=== PATIENT | male | born 1975 | race Caucasian/White ===

== ENCOUNTER 2016-03-21 08:28 | Emergency (ER) | payer MEDICAID ==
[~2016-03-21] VITALS: Ht 175.3 cm; Wt 74.4 kg
[2016-03-21 08:40] VITALS: BP 157/96; PULSE 81; RESP 20; TEMP 97.5; O2SAT 96
[2016-03-21] MEDS ORDERED: KETOROLAC TROMETHAMINE 60 MG/2 ML VIAL IM ONE (09:00)
[2016-03-21 09:13] LABS: BASOPHILS # (AUTO) 0.2 K/uL (0.0-0.2); BASOPHILS % (AUTO) 3.3 % (0.0-2.0); EOSINOPHILS # (AUTO) 0.1 K/uL (0.0-0.4); EOSINOPHILS % (AUTO) 1.7 % (0.0-4.0); HEMATOCRIT 47.6 % (36-54); HEMOGLOBIN 15.7 g/dL (14.0-18.0); LYMPHOCYTES # (AUTO) 1.8 K/uL (1.0-5.5); LYMPHOCYTES % (AUTO) 38.2 % (20.5-51.5); MEAN CORPUSCULAR HEMOGLOBIN 28 pg (27-31); MEAN CORPUSCULAR HGB CONC 33 % (32-36); MEAN CORPUSCULAR VOLUME 85 fL (79.0-98.0); MONOCYTES # (AUTO) 0.3 K/uL (0.0-1.0); MONOCYTES % (AUTO) 6.7 % (1.7-9.3); NEUTROPHILS # (AUTO) 2.3 K/uL (1.8-7.7); NEUTROPHILS % (AUTO) 50.1 % (40.0-70.0); PLATELET COUNT (AUTO) 242 K/uL (130-430); RED BLOOD CELL COUNT(AUTO) 5.59 MIL/uL (4.2-6.2); RED CELL DISTRIBUTION WIDTH 13.3 % (9.0-15.0); WHITE BLOOD COUNT (AUTO) 4.7 K/uL (4.8-10.8)
[2016-03-21 09:16] LABS: CALCIUM 8.8 mg/dL (8.4-11.0); CREATININE 0.94 mg/dL (0.55-1.30); POTASSIUM 3.8 mmol/L (3.5-5.1)
[2016-03-21 09:19] LABS: URIC ACID 5.1 mg/dL (2.4-7.0)
[2016-03-21 09:56] LABS: ERYTHROCYTE SEDIMENTATION RATE 1 MM/HR (0-15)
[2016-03-21 10:20] VITALS: BP 142/90; PULSE 80; RESP 20; TEMP 97.5; O2SAT 96
== END 2016-03-21 10:22 | disposition home or self-care (01) ==
LOC: SED 08:28
DX: M25.562 Pain in left knee (principal)
CPT/HCPCS: 36415; 73564; 80048; 84550; 85025; 85651; 96372; 99285; J1885